=== PATIENT | male | born 1945 | race Hispanic/Latino ===

== ENCOUNTER 2018-09-07 11:47 | Outpatient (CLI) | payer MEDICARE, MEDICAID ==
--- NOTE | 2018-09-07 13:54 | RAD ---
RIGHT HIP TWO VIEWS: HISTORY: Right hip pain. Low back pain. FINDINGS: Mild degenerative changes are present. No fracture, dislocation, or bony destruction is identified. POS: [facility]
== END 2018-09-07 11:48 | disposition home or self-care (01) ==
LOC: BICRAD 11:47
PROVIDERS: ATTEND Family Medicine
DX: M25.551 Pain in right hip (principal); M25.552 Pain in left hip; M16.0 Bilateral primary osteoarthritis of hip